=== PATIENT | male | born 1945 | race African-American/Black ===

== ENCOUNTER 2024-06-28 16:18 | Emergency (ER) | payer MEDICARE, OTHER ==
[~2024-06-28] VITALS: Ht 172.7 cm; Wt 72.6 kg
[2024-06-28] MEDS ORDERED: POLY17PO4 PO (17:09)
[2024-06-28] MEDS ORDERED: SENN8.6T19 PO (17:09)
[2024-06-28] MEDS ORDERED: LOSA50TA39 PO (17:09)
[2024-06-28] MEDS ORDERED: SERT-438 PO (17:09)
[2024-06-28] MEDS ORDERED: AMLO-212 PO (17:09)
[2024-06-28] MEDS ORDERED: DOCU100T2 PO (17:09)
[2024-06-28] MEDS ORDERED: ASPI-1101 PO (17:09)
[2024-06-28] MEDS ORDERED: SERT20OR6 PO (17:09)
[2024-06-28] MEDS ORDERED: BISA10SU95 RC (17:09)
[2024-06-28] MEDS ORDERED: HYDR-4077 PO (17:09)
[2024-06-28] MEDS ORDERED: ATOR20TA PO (17:09)
[2024-06-28] MEDS ORDERED: MAGN400O6 PO (17:09)
[2024-06-28 17:28] LABS: BASOPHILS % (AUTO) 0.7 % (0.0-2.0); EOSINOPHILS # (AUTO) 0.3 K/uL (0.0-0.7); EOSINOPHILS % (AUTO) 6.3 % (0.0-7.0); HEMATOCRIT 37.4 % (36.7-47.1); LYMPHOCYTES # (AUTO) 1.4 K/uL (0.8-4.8); LYMPHOCYTES % (AUTO) 31.5 % (20.5-51.5); MEAN CORPUSCULAR HEMOGLOBIN 30.4 uug (23.8-33.4); MEAN CORPUSCULAR HGB CONC 32 g/dL (32.5-36.3); MEAN CORPUSCULAR VOLUME 94.9 fL (73.0-96.2); MONOCYTES # (AUTO) 0.3 K/uL (0.1-1.30); MONOCYTES % (AUTO) 7.4 % (0.0-11.0); NEUTROPHILS # (AUTO) 2.5 K/uL (1.8-8.9); NEUTROPHILS % (AUTO) 54.1 % (38.5-71.5); PLATELET COUNT (AUTO) 238 K/uL (152-348); RED BLOOD CELL COUNT(AUTO) 3.94 MIL/uL (4.06-5.63); RED CELL DISTRIBUTION WIDTH 13.2 % (12.1-16.2); WHITE BLOOD COUNT (AUTO) 4.6 K/uL (3.6-10.2)
[2024-06-28 17:32] LABS: DIFFERENTIAL COMMENT 1
[2024-06-28 17:33] LABS: CALCIUM 9.4 mg/dL (8.5-10.1); CARBON DIOXIDE 26 mmol/L (21-32); CHLORIDE 104 mmol/L (98-107); CREATININE 1.8 mg/dL (0.6-1.3); GLUCOSE 114 mg/dL (74-106); POTASSIUM 4.3 mmol/L (3.5-5.1); SODIUM SERUM 140 mmol/L (136-145); UREA NITROGEN, BLOOD 31 mg/dL (7-18)
[2024-06-28 17:38] LABS: ALANINE AMINOTRANSFERASE 16 U/L (16-63); ALBUMIN 3.3 g/dL (3.4-5.0); ALKALINE PHOSPHATASE 98 U/L (50-136); ASPARTATE AMINOTRANSFERASE 21 U/L (15-37); BILIRUBIN,DIRECT 0.1 mg/dL (0.0-0.2); BILIRUBIN,TOTAL 0.4 mg/dL (0.2-1.0)
[2024-06-28 17:44] LABS: ETHANOL < 3 MG/DL (0-10)
[2024-06-28 20:30] LABS: *BILIRUBIN,URIN NEGATIVE (NEGATIVE); *BLOOD, URINE NEGATIVE (NEGATIVE); *CLARITY,URINE CLEAR (CLEAR); *COLOR,URINE YELLOW (YELLOW); *KETONES,URINE NEGATIVE (NEGATIVE); *UROBILINOGEN,URINE 0.2 E.U./dl (NORMAL); LEUKOCYTE ESTERASE ,URINE TRACE (NEGATIVE); NITRITE, URINE NEGATIVE (NEGATIVE); PH,URINE 5.5 (5.0-8.0); UGLUCOSE NEGATIVE (NEGATIVE)
[2024-06-28 20:35] LABS: *PROTEIN,URINE 3+ (NEGATIVE); RBC,URINE 0-3 /HPF (0-3)
[2024-06-28] MEDS ORDERED: MIRALAX 17 GM POWD.PACK PO PRN (20:45)
[2024-06-28] MEDS ORDERED: hydrALAZINE HCL 50 MG TABLET PO PRN (20:45)
[2024-06-28] MEDS ORDERED: BISACODYL 10 MG SUPP.RECT RC PRN (20:45)
[2024-06-28] MEDS ORDERED: Medication Not On Formulary EA (Docusate Sodium 200 MG) PO SCH (20:45)
[2024-06-28 20:52] LABS: *AMPHETAMINE, URINE NEGATIVE (NEGATIVE); *BARBITURATE, URINE NEGATIVE (NEGATIVE); *BENZODIAZEPINE, URINE NEGATIVE (NEGATIVE); *CANNABINOID, URINE NEGATIVE (NEGATIVE); *COCCAINE, URINE NEGATIVE (NEGATIVE); *OPIATE, URINE NEGATIVE (NEGATIVE); *PHENCYCLIDINE SCREEN,URINE NEGATIVE (NEGATIVE); FENTANYL, URINE NEGATIVE (NEGATIVE)
[2024-06-28] MEDS ORDERED: ATORVASTATIN 20 MG TABLET PO SCH (21:00)
[2024-06-28] MEDS ORDERED: AMLODIPINE 5 MG TABLET PO SCH (21:00)
[2024-06-28 22:07] VITALS: O2SAT 99
[2024-06-29] MEDS ORDERED: SERTRALINE HCL 12.5 MG PO SCH (09:00)
[2024-06-29] MEDS ORDERED: ASPIRIN EC 81 MG TABLET.DR PO SCH (09:00)
[2024-06-29] MEDS ORDERED: DOCUSATE SODIUM 100 MG CAPSULE PO SCH (09:00)
[2024-06-29] MEDS ORDERED: SENNOSIDES 1 TABLET PO SCH (09:00)
[2024-06-29] MEDS ORDERED: SERTRALINE HCL 50 MG TABLET PO SCH (09:00)
== END 2024-06-28 23:19 | disposition left against medical advice (07) ==
LOC: ER 16:23
DX: R41.82 Altered mental status, unspecified (principal); I13.0 Hypertensive heart and chronic kidney disease with heart failure and stage 1 through stage 4 chronic kidney disease, or unspecified chronic kidney disease; I50.9 Heart failure, unspecified; N18.9 Chronic kidney disease, unspecified; E78.5 Hyperlipidemia, unspecified; N40.0 Benign prostatic hyperplasia without lower urinary tract symptoms; Z79.82 Long term (current) use of aspirin; Z79.899 Other long term (current) drug therapy
CPT/HCPCS: 36415; 71045; 85025; A4606; A4663; G0480

== ENCOUNTER 2024-10-14 10:22 | Inpatient (IN) | payer MEDICARE, OTHER ==
[~2024-10-14] VITALS: Ht 172.7 cm; Wt 68.5 kg
[~2024-10-14 10:22] MED LIST: AMLO-212 PO; ASPI-1101 PO; ATOR20TA PO; BISA10SU95 RC; DOCU100T2 PO; HYDR-4077 PO; LOSA50TA39 PO; MAGN400O6 PO; POLY17PO4 PO; SENN8.6T19 PO; SERT-438 PO; SERT20OR6 PO
[2024-10-14] MEDS ORDERED: ACET-3117 PO (10:42)
[2024-10-14] MEDS ORDERED: GENT5DRO4 LEFTEYE (10:42)
[2024-10-14 11:15] LABS: CREATININE 1.6 mg/dL (0.6-1.3); SODIUM SERUM 142 mmol/L (136-145); UREA NITROGEN, BLOOD 28 mg/dL (7-18)
[2024-10-14 11:21] LABS: ASPARTATE AMINOTRANSFERASE 11 U/L (15-37); TOTAL PROTEIN, SERUM 7.6 g/dL (6.4-8.2)
[2024-10-14 11:40] LABS: PLATELET COUNT (AUTO) 253 K/uL (152-348); RED BLOOD CELL COUNT(AUTO) 3.75 MIL/uL (4.06-5.63); RED CELL DISTRIBUTION WIDTH 13.2 % (12.1-16.2); WHITE BLOOD COUNT (AUTO) 5.0 K/uL (3.6-10.2)
[2024-10-14 12:30] LABS: *BILIRUBIN,URIN NEGATIVE (NEGATIVE); *CLARITY,URINE CLEAR (CLEAR); *COLOR,URINE YELLOW (YELLOW); *KETONES,URINE NEGATIVE (NEGATIVE); *UROBILINOGEN,URINE 1.0 E.U./dl (NORMAL); LEUKOCYTE ESTERASE ,URINE NEGATIVE (NEGATIVE); NITRITE, URINE NEGATIVE (NEGATIVE); UGLUCOSE NEGATIVE (NEGATIVE)
[2024-10-14 12:35] LABS: *BLOOD, URINE TRACE (NEGATIVE); *PROTEIN,URINE 3+ (NEGATIVE)
[2024-10-14 13:13] LABS: SQUAMOUS EPITHELIAL CELL,UR FEW /HPF (NONE SEEN)
[2024-10-14] MEDS ORDERED: ACET325T53 PO (14:46)
[2024-10-14 15:13] VITALS: BP 145/76; TEMP 98.7; O2SAT 100
[2024-10-14 19:20] VITALS: BP 150/84; TEMP 98.7; O2SAT 96
[2024-10-14] MEDS ORDERED: TEMAZEPAM 15 MG CAPSULE PO PRN (19:30)
[2024-10-14] MEDS ORDERED: ACETAMINOPHEN 325 MG TABLET-SA PATIENTS-PAIN ONLY PO PRN (19:30)
[2024-10-14] MEDS ORDERED: SERTRALINE HCL 12.5 MG PO SCH (19:30)
[2024-10-14] MEDS ORDERED: ONDANSETRON 4 MG/2 ML VIAL IV PRN (19:30)
[2024-10-14] MEDS: DOCUSATE SODIUM 100 MG CAPSULE PO SCH (21:32)
[2024-10-14] MEDS: ATORVASTATIN 20 MG TABLET PO SCH (21:32)
[2024-10-14] MEDS: AMLODIPINE 5 MG TABLET PO SCH (21:32)
[2024-10-14] MEDS ORDERED: GENTAMICIN SULFATE OPHT DROP 5 ML BOTTLE ONE (21:42)
[2024-10-14] MEDS: GENTAMICIN SULFATE OPHT DROP 5 ML BOTTLE LEFTEYE SCH (21:45)
[2024-10-15] VITALS (7 sets, daily range): BP systolic 133–161; BP diastolic 64–84; TEMP 97.4–99.2; O2SAT 93–100
[2024-10-15] MEDS: IV 1/2NS 1000 ML 1,000 ML IV PRN (01:35)
[2024-10-15] MEDS: PANTOPRAZOLE SODIUM 40 MG TABLET.DR PO SCH (06:03)
[2024-10-15 06:38] LABS: PLATELET COUNT (AUTO) 228 K/uL (152-348); RED BLOOD CELL COUNT(AUTO) 3.42 MIL/uL (4.06-5.63); RED CELL DISTRIBUTION WIDTH 13.0 % (12.1-16.2); WHITE BLOOD COUNT (AUTO) 3.9 K/uL (3.6-10.2)
[2024-10-15 06:58] LABS: ASPARTATE AMINOTRANSFERASE < 5 U/L (15-37); CREATININE 1.7 mg/dL (0.6-1.3); SODIUM SERUM 140 mmol/L (136-145); TOTAL PROTEIN, SERUM 6.7 g/dL (6.4-8.2); UREA NITROGEN, BLOOD 26 mg/dL (7-18)
[2024-10-15 07:01] LABS: IRON, SERUM 52 ug/dL (50-175)
[2024-10-15] MEDS ORDERED: ACETAMINOPHEN 325 MG TABLET PO PRN (07:45)
[2024-10-15] MEDS: ASPIRIN EC 81 MG TABLET.DR PO SCH (08:28)
[2024-10-15] MEDS: SERTRALINE HCL 50 MG TABLET PO SCH (08:29)
[2024-10-15] MEDS: SENNOSIDES 1 TABLET PO SCH (08:29)
[2024-10-15] MEDS ORDERED: TEMAZEPAM 7.5 MG CAPSULE PO PRN (15:00)
[2024-10-15] MEDS: MIRALAX 17 GM POWD.PACK PO PRN (17:42)
[2024-10-15] MEDS: ENSURE ENLIVE (VAN) 240 ML LIQUID PO SCH (17:43)
[2024-10-16 06:50] VITALS: BP 149/78; TEMP 98.6; O2SAT 98
[2024-10-16] MEDS: MAGNESIUM CITRATE 296 ML BOTTLE PO ONE (09:44)
[2024-10-16 11:35] VITALS: BP 143/75; TEMP 98.2; O2SAT 99
[2024-10-16 15:42] VITALS: BP 154/76; TEMP 98.3; O2SAT 97
[2024-10-16] MEDS: MUPIROCIN 2% OINT 22 GM TUBE TP SCH (17:46)
[2024-10-16 20:06] VITALS: BP 158/65; TEMP 98.1; O2SAT 98
[2024-10-16] MEDS ORDERED: CLONIDINE HCL 0.1 MG TABLET PO PRN (21:15)
[2024-10-17] MEDS: BISACODYL 10 MG SUPP.RECT RC PRN (00:55)
[2024-10-17 04:42] VITALS: BP 149/76; TEMP 97.7; O2SAT 98
[2024-10-17] MEDS: MUPIROCIN 2% OINT 22 GM TUBE NS SCH (09:38)
[2024-10-17 11:08] VITALS: BP 140/70; TEMP 97.6; O2SAT 99
[2024-10-17 15:32] VITALS: BP 136/73; TEMP 98.4; O2SAT 95
== END 2024-10-17 19:16 | DRG 640 ==
LOC: ER 10:22 → TELE3 14:26 → MEDSURG3 10-15 21:50
PROVIDERS: ADMIT Internal Medicine; ATTEND Internal Medicine
PROC: 05H933Z Insertion of Infusion Device into Right Brachial Vein, Percutaneous Approach (ICD-10-PCS; principal; 2024-10-14)
DX: E86.0 Dehydration (principal); G92.8 Other toxic encephalopathy; N17.0 Acute kidney failure with tubular necrosis; F03.92 Unspecified dementia, unspecified severity, with psychotic disturbance; E44.0 Moderate protein-calorie malnutrition; I13.0 Hypertensive heart and chronic kidney disease with heart failure and stage 1 through stage 4 chronic kidney disease, or unspecified chronic kidney disease; F01.53 Vascular dementia, unspecified severity, with mood disturbance; G25.9 Extrapyramidal and movement disorder, unspecified; D68.59 Other primary thrombophilia; F01.54 Vascular dementia, unspecified severity, with anxiety; K56.41 Fecal impaction; Z68.23 Body mass index [BMI] 23.0-23.9, adult; D64.9 Anemia, unspecified; I50.9 Heart failure, unspecified; N18.9 Chronic kidney disease, unspecified; E78.5 Hyperlipidemia, unspecified; Z86.73 Personal history of transient ischemic attack (TIA), and cerebral infarction without residual deficits; Z74.09 Other reduced mobility; N40.0 Benign prostatic hyperplasia without lower urinary tract symptoms; R62.7 Adult failure to thrive; R44.8 Other symptoms and signs involving general sensations and perceptions; F12.10 Cannabis abuse, uncomplicated; Z79.899 Other long term (current) drug therapy; Z79.82 Long term (current) use of aspirin; K21.9 Gastro-esophageal reflux disease without esophagitis; R94.31 Abnormal electrocardiogram [ECG] [EKG]; R14.1 Gas pain; Z86.69 Personal history of other diseases of the nervous system and sense organs
CPT/HCPCS: 36415; 70450; 71045; 74018; 83550; 83605; 83735; 84100; 84153; 84443; 84484; 85025; 85730; 87040; 87086; G0378; J7042